=== PATIENT | female | born 1990 | race Hispanic/Latino ===

== ENCOUNTER 2025-01-26 18:58 | Inpatient (IN) | payer BC ==
[~2025-01-26] VITALS: Ht 160 cm; Wt 68.0 kg
[2025-01-26 19:10] VITALS: TEMP 98
[2025-01-26 19:29] LABS: BASOPHILS % 0.4 % (0.0-1.0); EOSINOPHILS % 1.0 % (0.0-6.0); LYMPHOCYTES % 25.5 % (18.0-39.1); MONOCYTES % 6.2 % (4.4-11.3); NEUTROPHILS % 66.8 % (38.7-80.0); RED CELL DISTRIBUTION WIDTH 13.1 % (11.7-14.4)
[2025-01-26 19:52] LABS: EST GLOMERULAR FILTRATION RATE 109.0 ML/MIN (>=60)
[2025-01-26] MEDS: ONDANSETRON HCL INJ 2MG/ML 2ML 2 MG/ML VIAL IV STA (20:05)
[2025-01-26] MEDS: SODIUM CHLORIDE 0.9% 1000ML 1,000 ML IV STA (20:05)
[2025-01-26] MEDS: BELLADONNA ALK/PHENOBARBITAL 5 ML UDC PO ONE (20:05)
[2025-01-26] MEDS: LIDOCAINE VISC 2% SOLN 15 ML UDC PO STA (20:05)
[2025-01-26] MEDS: MAGNESIUM/ALUMINUM/SIMETHICONE 30 ML UDC PO STA (20:06)
[2025-01-26 20:16] LABS: LEUKOCYTE ESTERASE ,URINE NEGATIVE (NEGATIVE); PROTEIN,URINE DIPSTICK NEGATIVE (NEGATIVE); URINE UROBILINOGEN 4.0 mg/dL (0.2 - 1)
[2025-01-26 20:21] LABS: PREGNANCY TEST, URINE NEGATIVE (NEGATIVE)
[2025-01-26 20:28] LABS: EPITHELIAL CELLS,URINE FEW /LPF; WBC,URINE (MAN) 0-5 /HPF (0-5)
[2025-01-26] MEDS ORDERED: IOPAMIDOL 370 MG/ML 100 ML INFUS..BTL INJ ONE (20:35)
[2025-01-26 21:51] VITALS: PULSE 70; RESP 16
[2025-01-26] MEDS ORDERED: MAALOX/LIDOCAINE/BENADRYL/NYST 30 ML BTL PO PRN (23:15)
[2025-01-26] MEDS ORDERED: DICYCLOMINE HCL20 MG PO (23:19)
[2025-01-26 23:24] VITALS: BP 118/70; PULSE 78; RESP 22; O2SAT 100
[2025-01-26] MEDS: SODIUM CHLORIDE 0.9% 1000ML 1,000 ML IV SCH (23:32)
[2025-01-26] MEDS: ONDANSETRON HCL INJ 2MG/ML 2ML 2 MG/ML VIAL IV PRN (23:58)
[2025-01-26] MEDS: Morphine 4mg INJECTION 4 MG/ML INJ IV PRN (23:59)
[2025-01-27] VITALS (7 sets, daily range): BP systolic 110–120; BP diastolic 79–120; PULSE 54–67; RESP 16–19; TEMP 97.3–98.7; O2SAT 98–100
[2025-01-27 02:22] LABS: AMPHETAMINES SCREEN,URINE NEGATIVE (NEGATIVE); CANNABINOIDS SCREEN,URINE NEGATIVE (NEGATIVE); COCAINE SCREEN,URINE NEGATIVE (NEGATIVE); METHADONE SCREEN, URINE NEGATIVE (NEGATIVE); OPIATES SCREEN,URINE NEGATIVE (NEGATIVE)
[2025-01-27 06:22] LABS: LACTATE DEHYDROGENASE 211 IU/L (125-220)
[2025-01-27 06:37] LABS: ETHANOL < 10.0 mg/dL (0.0-10.0)
[2025-01-27 06:40] LABS: EST GLOMERULAR FILTRATION RATE 122.0 ML/MIN (>=60)
[2025-01-27 07:19] LABS: BASOPHILS % 0.4 % (0.0-1.0); EOSINOPHILS % 0.9 % (0.0-6.0); LYMPHOCYTES % 43.6 % (18.0-39.1); MONOCYTES % 7.3 % (4.4-11.3); NEUTROPHILS % 47.6 % (38.7-80.0); RED CELL DISTRIBUTION WIDTH 13.2 % (11.7-14.4)
[2025-01-27 23:39] LABS: % IRON SATURATION 20 % (15-50)
[2025-01-28] VITALS: BP 101/65; PULSE 85; RESP 17; TEMP 98.6; O2SAT 100
[2025-01-28 04:00] VITALS: BP 106/75; PULSE 61; RESP 16; TEMP 98.9; O2SAT 100
[2025-01-28 06:25] LABS: BASOPHILS % 0.6 % (0.0-1.0); EOSINOPHILS % 1.4 % (0.0-6.0); LYMPHOCYTES % 44.6 % (18.0-39.1); MONOCYTES % 8.6 % (4.4-11.3); NEUTROPHILS % 44.6 % (38.7-80.0); RED CELL DISTRIBUTION WIDTH 13.2 % (11.7-14.4)
[2025-01-28 06:58] LABS: EST GLOMERULAR FILTRATION RATE 115 ML/MIN (>=60)
[2025-01-28 07:17] LABS: HEPATITIS A ANTIBODY IGM (P) Negative; HEPATITIS B CORE IGM (P) Negative; HEPATITIS B SURFACE AG (P) Negative
[2025-01-28 07:20] VITALS: BP 112/82; PULSE 59; RESP 18; TEMP 98.8; O2SAT 100
[2025-01-28 08:24] VITALS: BP 112/82; PULSE 59; RESP 18; TEMP 98.8; O2SAT 100
[2025-01-28 11:41] VITALS: BP 115/81; PULSE 52; RESP 19; TEMP 98.6; O2SAT 100
[2025-01-28] MEDS ORDERED: FENTANYL CITRATE/PF 100MCG/2 ML INJ ONE ×2 (13:15→14:41)
[2025-01-28] MEDS ORDERED: ROCURONIUM BROMIDE 1 ML IV ONE (13:15)
[2025-01-28] MEDS ORDERED: MIDAZOLAM HCL 2 MG/2 ML VIAL ONE (13:15)
[2025-01-28] MEDS ORDERED: ACETAMINOPHEN 1000 MG/100 ML 100 ML IV ONE (13:16)
[2025-01-28] MEDS ORDERED: PROPOFOL IV EMULSION 10 MG/ML 20 ML VIAL ONE (13:16)
[2025-01-28] MEDS ORDERED: LIDOCAINE HCL 2% LOCAL INJ 5 ML SDV VIAL INJ ONE (13:17)
[2025-01-28] MEDS ORDERED: METOCLOPRAMIDE HCL 10 MG/2ML VIAL ONE (13:17)
[2025-01-28] MEDS ORDERED: DEXAMETHASONE SOD PHOS INJ 4 MG/ML SDV ONE (13:17)
[2025-01-28] MEDS ORDERED: FAMOTIDINE 20 MG/2 ML VIAL IV ONE (13:17)
[2025-01-28] MEDS ORDERED: ONDANSETRON HCL INJ 2MG/ML 2ML 2 MG/ML VIAL ONE (13:17)
[2025-01-28] MEDS ORDERED: GLYCOPYRROLATE INJ 0.2 MG/ML VIAL ONE ×2 (14:22→14:25)
[2025-01-28] MEDS ORDERED: KETOROLAC TROMETHAMINE 30 MG/ML VIAL ONE (14:22)
[2025-01-28] MEDS ORDERED: EYE LUBRICANT OPTH OINT 3.5GM TUBE OP ONE (14:22)
[2025-01-28] MEDS ORDERED: NEOSTIGMINE 1 MG/ML 10ML VIAL ONE (14:25)
[2025-01-28] MEDS: SODIUM CHLORIDE 0.9% 1000ML 1,000 ML IV SCH (15:00)
[2025-01-28] MEDS ORDERED: HYDROCODONE/APAP 7.5MG-325MG 1 EA TAB PO PRN (15:00)
[2025-01-28] MEDS ORDERED: ONDANSETRON HCL INJ 2MG/ML 2ML 2 MG/ML VIAL IV PRN (15:00)
[2025-01-28] MEDS ORDERED: KETOROLAC TROMETHAMINE 30 MG/ML VIAL IV PRN (15:00)
[2025-01-28] MEDS: ONDANSETRON HCL INJ 2MG/ML 2ML 2 MG/ML VIAL ONE (15:15)
[2025-01-28] MEDS: FENTANYL CITRATE/PF 100MCG/2 ML INJ ONE (15:25)
[2025-01-28 20:00] VITALS: BP 122/79; PULSE 57; RESP 16; TEMP 98.4; O2SAT 99
[2025-01-28] MEDS: HYDROMORPHONE 1MG/1ML INJ IV PRN (20:11)
[2025-01-29] VITALS (7 sets, daily range): BP systolic 103–126; BP diastolic 68–86; PULSE 54–80; RESP 17–19; TEMP 97.4–99; O2SAT 99–100
[2025-01-29 06:19] LABS: BASOPHILS % 0.2 % (0.0-1.0); EOSINOPHILS % 0.0 % (0.0-6.0); LYMPHOCYTES % 16.5 % (18.0-39.1); MONOCYTES % 5.1 % (4.4-11.3); NEUTROPHILS % 77.9 % (38.7-80.0); RED CELL DISTRIBUTION WIDTH 12.7 % (11.7-14.4)
[2025-01-29 06:57] LABS: EST GLOMERULAR FILTRATION RATE 121 ML/MIN (>=60)
[2025-01-30 04:11] VITALS: BP 125/78; PULSE 61; RESP 16; TEMP 98.2; O2SAT 99
[2025-01-30 06:33] LABS: BASOPHILS % 0.4 % (0.0-1.0); EOSINOPHILS % 0.8 % (0.0-6.0); LYMPHOCYTES % 43.1 % (18.0-39.1); MONOCYTES % 4.5 % (4.4-11.3); NEUTROPHILS % 51.1 % (38.7-80.0); RED CELL DISTRIBUTION WIDTH 13.2 % (11.7-14.4)
[2025-01-30 07:07] LABS: EST GLOMERULAR FILTRATION RATE 121.0 ML/MIN (>=60)
[2025-01-30 08:21] VITALS: BP 112/82; PULSE 60; RESP 18; TEMP 98.3; O2SAT 100
[2025-01-30 13:14] VITALS: BP 128/86; PULSE 68; RESP 18; TEMP 98.4; O2SAT 98
[2025-01-30 16:04] VITALS: BP 135/97; PULSE 61; RESP 18; TEMP 98; O2SAT 100
[2025-01-30 16:51] LABS: ALPHA-1-ANTITRYPSIN 150.0 mg/dL (100-188)
[2025-01-30] MEDS: ENOXAPARIN SOD INJ 40 MG/0.4 ML SYR SC SCH (17:03)
== END 2025-01-30 18:05 | disposition home or self-care (01) | DRG 419 ==
LOC: ER 19:08 → ERHOLD 22:01 → MED/SURG2 22:44
PROVIDERS: ADMIT Family Medicine Adult Medicine; ATTEND Family Medicine Adult Medicine
PROC: 0FT44ZZ Resection of Gallbladder, Percutaneous Endoscopic Approach (ICD-10-PCS; principal; 2025-01-28 13:28)
DX: K80.10 Calculus of gallbladder with chronic cholecystitis without obstruction (principal); R74.01 Elevation of levels of liver transaminase levels; R74.8 Abnormal levels of other serum enzymes; E27.9 Disorder of adrenal gland, unspecified; D64.9 Anemia, unspecified; Z86.19 Personal history of other infectious and parasitic diseases
CPT/HCPCS: 36415; 71260; 74177; 74181; 76705; 80053; 80307; 80320; 80329; 81001; 81025; 82103; 82390; 82550; 82607; 82728; 82746; 82977; 83540; 83615; 83690; 84443; 84466; 84484; 85025; 85045; 88304; 93005; 99284; C1766; J1100; J1171; J1308; J1650; J1885; J2003; J2250; J2270; J2405; J2470; J2710; J2765; J7030; Q9967

== ENCOUNTER 2025-02-01 17:55 | Inpatient (IN) | payer BC ==
[~2025-02-01] VITALS: Ht 160 cm; Wt 68.0 kg
[2025-02-01 11:48] VITALS: BP 118/73; PULSE 53; RESP 17; TEMP 98.9; O2SAT 100
[~2025-02-01 17:55] MED LIST: DICYCLOMINE HCL20 MG PO
[2025-02-01 19:08] LABS: BASOPHILS % 0.4 % (0.0-1.0); EOSINOPHILS % 0.6 % (0.0-6.0); LYMPHOCYTES % 25.8 % (18.0-39.1); MONOCYTES % 4.6 % (4.4-11.3); NEUTROPHILS % 68.3 % (38.7-80.0); RED CELL DISTRIBUTION WIDTH 13.3 % (11.7-14.4)
[2025-02-01 19:13] VITALS: PULSE 58; RESP 16; TEMP 98.7
[2025-02-01] MEDS: SODIUM CHLORIDE 0.9% 1000ML 1,000 ML IV STA (19:29)
[2025-02-01] MEDS: ONDANSETRON HCL INJ 2MG/ML 2ML 2 MG/ML VIAL IV STA (19:29)
[2025-02-01] MEDS: Morphine 4mg INJECTION 4 MG/ML INJ IV PRN (19:30)
[2025-02-01 19:33] LABS: EST GLOMERULAR FILTRATION RATE 120.0 ML/MIN (>=60)
[2025-02-01] MEDS: MAGNESIUM/ALUMINUM/SIMETHICONE 30 ML UDC PO STA (19:40)
[2025-02-01] MEDS: BELLADONNA ALK/PHENOBARBITAL 5 ML UDC PO ONE (19:41)
[2025-02-01] MEDS: LIDOCAINE VISC 2% SOLN 15 ML UDC PO STA (19:42)
[2025-02-01] MEDS ORDERED: IOPAMIDOL 370 MG/ML 100 ML INFUS..BTL INJ ONE (20:40)
[2025-02-01 20:48] LABS: LEUKOCYTE ESTERASE ,URINE TRACE (NEGATIVE); PROTEIN,URINE DIPSTICK NEGATIVE (NEGATIVE); URINE UROBILINOGEN 1 mg/dL (0.2 - 1)
[2025-02-01 21:00] LABS: WBC,URINE (MAN) 0-5 /HPF (0-5)
[2025-02-02] VITALS (9 sets, daily range): BP systolic 115–126; BP diastolic 71–88; PULSE 53–63; RESP 17–18; TEMP 98–98.9; O2SAT 97–100
[2025-02-02] MEDS ORDERED: ACETAMINOPHEN 325 MG TAB PO PRN
[2025-02-02] MEDS: SODIUM CHLORIDE 0.9% 1000ML 1,000 ML IV SCH (00:19)
[2025-02-02 06:32] LABS: BASOPHILS % 0.6 % (0.0-1.0); EOSINOPHILS % 0.6 % (0.0-6.0); LYMPHOCYTES % 33.3 % (18.0-39.1); MONOCYTES % 7.1 % (4.4-11.3); NEUTROPHILS % 58.2 % (38.7-80.0); RED CELL DISTRIBUTION WIDTH 13.4 % (11.7-14.4)
[2025-02-02 06:59] LABS: EST GLOMERULAR FILTRATION RATE 120.0 ML/MIN (>=60)
[2025-02-02] MEDS: POLYETHYLENE GLYCOL 3350 17 GM PACK PO SCH (08:30)
[2025-02-02] MEDS: ONDANSETRON HCL INJ 2MG/ML 2ML 2 MG/ML VIAL IV PRN (18:17)
[2025-02-03] VITALS: BP 115/84; PULSE 58; RESP 18; TEMP 98; O2SAT 100
[2025-02-03 02:26] VITALS: BP 115/84; PULSE 58; RESP 18; TEMP 98; O2SAT 100
[2025-02-03 05:38] VITALS: BP 115/74; PULSE 60; RESP 19; TEMP 98.5; O2SAT 100
[2025-02-03 06:35] LABS: BASOPHILS % 0.7 % (0.0-1.0); EOSINOPHILS % 1.8 % (0.0-6.0); LYMPHOCYTES % 38.1 % (18.0-39.1); MONOCYTES % 7.1 % (4.4-11.3); NEUTROPHILS % 52.1 % (38.7-80.0); RED CELL DISTRIBUTION WIDTH 13.7 % (11.7-14.4)
[2025-02-03 07:06] LABS: EST GLOMERULAR FILTRATION RATE 119.0 ML/MIN (>=60)
[2025-02-03 08:00] VITALS: BP 122/82; PULSE 58; RESP 18; TEMP 98.5; O2SAT 100
== END 2025-02-03 10:55 | disposition home or self-care (01) | DRG 445 ==
LOC: ER 17:59 → ERHOLD 22:11 → MED/SURG3 23:44
PROVIDERS: ADMIT Family Medicine Adult Medicine; ATTEND Family Medicine Adult Medicine
DX: K83.8 Other specified diseases of biliary tract (principal); K91.86 Retained cholelithiasis following cholecystectomy; R74.8 Abnormal levels of other serum enzymes; Z90.49 Acquired absence of other specified parts of digestive tract; Z86.19 Personal history of other infectious and parasitic diseases
CPT/HCPCS: 36415; 74177; 74181; 80053; 81001; 83690; 84484; 84702; 85025; 93005; 99284; J2270; J2405; J2543; J7030; Q9967